=== PATIENT | female | born 1990 | race Caucasian/White ===

== ENCOUNTER 2023-06-20 14:09 | Outpatient (REF) | payer OTHER, SELFPAY ==
[2023-06-20 14:32] LABS: MANUAL DIFF FLAG NO
[2023-06-20 14:59] LABS: Basophils Percent Auto 0.1 % (0-2); Eosinophils Absolute Auto 0.3 X10*3/uL (0.0-0.4); Eosinophils Percent Auto 1.9 % (0-4); Hematocrit 37.3 % (37.0-47.0); Hemoglobin 12.3 g/dl (12.0-16.0); Imm Gran Abs Auto 0.05 X10*3/uL (0.00-0.03); Imm Gran Pct Auto 0.4 % (0.0-0.4); Lymphocytes Absolute Auto 4.3 X10*3/uL (1.2-4.9); Lymphocytes Percent Auto 31.5 % (20-40); Mean Corpuscular Hemoglobin 27.8 pg (27.0-33.0); Mean Corpuscular Volume 84.4 fL (80.0-98.0); Monocytes Absolute Auto 0.7 X10*3/uL (0.1-1.2); Monocytes Percent Auto 4.9 % (2-11); Neutrophils Absolute Auto 8.3 x10*3/uL (2.0-8.3); Neutrophils Percent Auto 61.2 % (45-73); Platelet Count 377 X10*3/uL (160-400); Red Blood Count 4.42 X10*6/uL (4.20-5.50); Red Cell Distribution Width 13.2 % (11.0-16.0); White Blood Count 13.5 X10*3/uL (4.8-10.8)
[2023-06-20 16:16] LABS: C Reactive Protein 1.02 mg/dL (< or = 0.50)
[2023-06-20 16:17] LABS: Erythrocyte Sedimentation Rate 26 MM/HR (0-20)
== END 2023-06-20 14:10 | disposition home or self-care (01) ==
LOC: HO.LAB 14:09
PROVIDERS: PCP Internal Medicine; Visit Provider Registered Nurse
DX: G44.83 Primary cough headache (principal)
CPT/HCPCS: 36415; 85025; 85652; 86140

== ENCOUNTER 2023-09-07 08:44 | Day surgery (SDC) | payer OTHER, MEDICAID, SELFPAY ==
--- NOTE | ~2023-09-07 | FL_ITS ---
FLUOROSCOPIC GUIDED LUMBAR PUNCTURE INDICATION: Pseudotumor cerebri Risks and benefits and possible complications were discussed with the patient and the consent form was signed. Patient was placed prone on the fluoroscopy table. The back was prepped and draped in routine sterile fashion. Betadine was used as a skin antiseptic. Utilizing fluoroscopic guidance, the L2-3 interlaminar space was accessed with a 5 in 22 gauge quinkie spinal needle and clear CSF fluid obtained. Opening pressure was 28 cm H20 the left lateral decubitus position. 10 cc of fluid was removed and sent for analysis. Closing pressure was 15 cm H2O. The needle was removed without immediate complications. Total fluoroscopy time: 0.7 min FL/FL guided lumbar puncture LP IMPRESSION: Successful fluoroscopic lumbar puncture. Elevated opening pressure. This procedure was performed by Alfred Cornejo PA-C and supervised by Dr. Rankin.
[2023-09-07 09:34] VITALS: BMI 44.3
[2023-09-07 12:00] VITALS: BP 126/77; PULSE 71; RESP 20; TEMP 36.3; O2SAT 97
[2023-09-07] MEDS: Acetaminophen 325 MG TABLET 650 MG PO (12:05)
[2023-09-07] MEDS: Cyclobenzaprine HCl 10 MG TABLET PO (12:14)
[2023-09-07 12:15] VITALS: BP 128/79; PULSE 75; RESP 16; O2SAT 97
[2023-09-07 12:30] VITALS: BP 129/82; PULSE 85; RESP 18; O2SAT 99
[2023-09-07 12:42] VITALS: BP 122/72; PULSE 86; RESP 20; TEMP 36.5; O2SAT 98
[2023-09-07 12:55] LABS: CSF Appearance Clear, Colorless; CSF Tube # 1
[2023-09-07 13:05] LABS: Glucose CSF 58 mg/dL; Total Protein CSF 31.4 mg/dL (15-45)
[2023-09-07 13:41] LABS: Appearance CSF CLEAR; CSF Tube # 4; Color CSF COLORLESS; Lymphocytes CSF 100 %; Red Blood Cell CSF 9 MM*3; White Blood Cell CSF 2 MM*3
== END 2023-09-07 12:46 | disposition home or self-care (01) ==
PROVIDERS: Physician Assistant Surgical; PCP Internal Medicine; Visit Provider Psychiatry & Neurology Neurology
PROC: 009U3ZZ Drainage of Spinal Canal, Percutaneous Approach (ICD-10-PCS; CPT 62270; principal; 2023-09-07 11:00)
DX: G93.2 Benign intracranial hypertension (principal); G43.909 Migraine, unspecified, not intractable, without status migrainosus; F32.A Depression, unspecified; K58.9 Irritable bowel syndrome, unspecified
CPT/HCPCS: 62328; 82945; 84157; 87015; 87070; 87205; 89051

== ENCOUNTER → 2023-09-07 11:00 | Outpatient (BNV) | payer OTHER, MEDICAID, SELFPAY | PROVIDERS: PCP Internal Medicine; Visit Provider Physician Assistant Surgical | DX: G93.2 Benign intracranial hypertension (principal) | CPT/HCPCS: 62328 ==

== ENCOUNTER 2023-09-10 09:15 | Emergency (ER) | payer OTHER, MEDICAID, SELFPAY ==
[2023-09-10 09:37] VITALS: BP 138/42; PULSE 79; RESP 20; TEMP 36.4; O2SAT 98; BMI 43.9
[2023-09-10 10:12] VITALS: BP 123/72; PULSE 73; RESP 16; TEMP 36.7; O2SAT 100
--- NOTE | 2023-09-10 10:12 | ED_ITS ---
HPI - Headache General Chief Complaint: Headache Stated Complaint: nausea headache Time Seen by Provider: 09/10/23 10:08 Source: patient and RN notes reviewed Mode of arrival: ambulatory Limitations: no limitations History of Present Illness HPI Narrative: This is a 13-pafq-bom-female, with a history of migraine headaches, presenting to the ER with complaints of headaches, nausea, dizziness, facial tingling x 3 days. Pt states that she had a lumbar puncture perforrmed by Dr. Pizano on 09/07/2023. She states that the procedure went well. The following day, while she was at lunch she started to develop headaches, nausea, that would only resolve with laying flat. She states that her symptoms are intermittent as they resolve while she is lying flat. She called Dr. Pizaon and was told to report to the ER for further evaluation. No other complaints or concerns at this time. MD elicited complaint: headache and migraine Associated symptoms: none Treatments prior to arrival: none Related Data Home Medications Medication Instructions Recorded Confirmed acetaminophen 500 mg tablet 1,000 mg PO Q6H PRN pain 09/07/23 09/07/23 buspirone 5 mg tablet 5 mg PO BID 09/07/23 09/07/23 smjgokumnd-cmgfiouhisdvu-latalnvj 1 tab PO Q8H PRN Gastric Reflux 09/07/23 09/07/23 50 mg-325 mg-40 mg tablet cyclobenzaprine 10 mg tablet 10 mg PO TID 09/07/23 09/07/23 cyclobenzaprine 5 mg tablet 5 - 10 mg PO QD-TID PRN pain 09/07/23 09/07/23 escitalopram oxalate 20 mg tablet 20 mg PO DAILY 09/07/23 09/07/23 ibuprofen 800 mg tablet 800 mg PO Q8H 09/07/23 09/07/23 pantoprazole 40 mg tablet,delayed 40 mg PO DAILY 09/07/23 09/07/23 release propranolol 10 mg tablet 10 mg PO BID PRN insomnia 09/07/23 09/07/23 simethicone 80 mg chewable tablet 80 mg PO QID PRN gas 09/07/23 09/07/23 spironolactone 100 mg tablet 100 mg PO DAILY 09/07/23 09/07/23 sucralfate 1 gram tablet 1 g PO NEEDED PRN Gastric Reflux 09/07/23 09/07/23 tramadol 50 mg tablet 50 mg PO TID 09/07/23 09/07/23 Previous Rx's Medication Instructions Recorded omjspjvfpr-gmrtzucsarfuw-irfubiaw 2 cap PO Q4-6H PRN pain #14 caps 09/10/23 50 mg-300 mg-40 mg capsule (Fioricet) Allergies Allergy/AdvReac Type Severity Reaction Status Date / Time No Known Allergies Allergy Verified 09/10/23 09:37 Review of Systems 2 Review of Systems: Yes all other systems are reviewed and are negative Constitutional: Constitutional: Reports as per HPI [facility] Past Medical History Medical History (Updated 09/11/23 @ 15:52 by Juan Watts MD) GERD (gastroesophageal reflux disease) Depression Acne Former smoker H/O migraine IBS (irritable bowel syndrome) Surgical History (Updated 09/07/23 @ 09:04 by Yasmine Watson) Hx laparoscopic cholecystectomy History of microdiscectomy Hx of tubal ligation Social History Social History Are you a primary resident caregiver to a significant other at home: Yes (children) Do you presently have visiting nurse or other home services: No Patient Tobacco Use Status: Former Tobacco user Quit Date: 2018 Tobacco use type: Cigarette Physical Exam 2 Vital Signs: Vital Signs: Last Vital Signs Temp 98.6 F 09/10/23 17:27 Pulse 74 09/10/23 17:27 Resp 14 09/10/23 17:27 BP 136/84 09/10/23 17:27 Pulse Ox 99 09/10/23 17:27 O2 Del Method Room Air 09/10/23 17:27 BMI result Body Mass Index 43.9 Const: General: cooperative, comfortable and no acute distress O rientation/consciousness: patient oriented x3 Limitations: no limitations HEENT: Head: Yes normal to inspection, Yes normocephalic and Yes atraumatic Ears: hearing grossly normal bilaterally General nose exam: Normal external nose present Face and sinus: Yes normal facial exam Mouth: Normal oral and palatal mucosa present, oropharynx normal and moist mucous membranes Throat: Yes posterior oropharynx normal Eyes: General: appearance normal, both eyes and all related structures E yelids: Yes eyelids normal Conjunctivae: conjunctivae normal Sclerae: s clerae normal Pupils: Equal, round and reactive pupils present EOM: EOMs intact bilaterally Neck: Neck: Yes normal visual inspection, Yes full ROM and Yes no lymphadenopathy Lymphatic: no lymphadenopathy noted Chest: Chest palpation & inspection: normal inspection of the chest Resp: Effort & Inspection: normal respiratory effort and able to speak in complete sentences Auscultation: clear to auscultation bilaterally, no crackles, no rales, no rhonchi and no wheezes Cardio: Rate: regular rate Rhythm: regular rhythm Heart sounds: S1 normal heart sound present and S2 normal heart sound present GI: Inspection: Yes normal to inspection Skin: General skin exam: no rashes or lesions noted Trauma: no lacerations or abrasions Wounds: no wounds Neuro: General: patient oriented x3 and moves all extremities Cranial nerves: Yes CN's II-XII intact bilaterally, Yes Equal, round and reactive pupils present, Yes Normal facial strength present and Yes Midline tongue present C ognition (Neuro): normal cognition Motor exam (neuro): 5/5 motor strength present throughout Extrem: General: Yes normal to inspection Right upper extremity: normal to inspection Left upper extremity: normal to inspection Right lower extremity: normal to inspection Left lower extremity: normal to inspection NIH Stroke Scale Internal: Initial- Upon Arrival Level of Consciousness: Alert Level of Consciousness Questions: Answers both questions correctly Level of Consciousness Commands: Performs both tasks correctly Best Gaze: Normal Visual: No visual loss Facial Palsy: Normal Motor Arm (Right): No drift Motor Arm (Left): No drift Motor Leg (Right): No drift Motor Leg (Left): No drift Limb Ataxia: Absent Sensory: Normal Best Language: No aphasia Dysarthia: Normal Extinction and Inattention: No abnormality Score: 0 Course Reevaluation(s) Reevaluation #1: Patient re-evaluated, feeling better however was only able to sit up for approximately 5 minutes and she started to feel pressure in her head again. Patient about to receive 2nd L of fluids. Will continue to monitor. Time: 12:43 Reevaluation #2: Patient re-evaluated, IV fluids still running however, about 1/3 of the bag left. patient has been laying down horizontally, will trial patient in an upright position and re-evaluate. She states that she is feeling significantly since her arrival in the emergency room however does reports some pressure in her forehead. She remains hemodynamically stable, afebrile, neurologically intact. Time: 15:05 Reevaluation #3: Patient reassessed after having her sit upright states worsening pain, she reports this as a pressure-like sensation. Pressure resolves with lying down. I discussed this with my attending physician, Dr. Pan, who given we have exhausted all entities including IV fluids, Reglan, Benadryl, Fioricet, and patient has improved however still extremely symptomatic, refusing to sit up for prolonged periods of time as well as walking, patient may need further intervention. Dr. Pan recommends reaching out to anethesiology for epidural blood patch. Time: 15:31 Additional Reevaluation(s): Spoke to Dr. Allen, unable to perform blood patch tonight. Advised to reach out to pain management. I spoke to Dr. Watts, who recommends diet of pepsi/coke and dark chocolate and to remain horizontal, and plenty of rest. Pt is feeling better, but still not back to her baseline. Dr. Watts reports that she can follow up in his office tomorrow if symptoms persist. Relayed information to patient who understands and agrees with plan. Pt stable for discharge. Medications Administered Discontinued Medications Generic Name Dose Route Start Last Admin Trade Name Freq PRN Reason Stop Dose Admin Acetaminophen/Butalbital/Caffeine 2 tab 09/10/23 10:09 09/10/23 10:32 Butalb/Acetamin/Caff 50/325/40 Tablet PO 09/10/23 10:10 2 tab ONCE ONE Administration Diphenhydramine HCl 50 mg 09/10/23 10:09/10/23 10:33 Diphenhydramine Hcl 50 Mg/Ml Vial IVPUSH 09/10/23 10:10 50 mg ONCE ONE Administration Sodium Chloride 1,000 mls @ 2,000 mls/hr 09/10/23 10:09/10/23 11:29 Ns IVCONT 09/10/23 10:38 Infused .Q30M ONE Infusion Metoclopramide HCl 10 mg 09/10/23 10:09/10/23 10:35 Metoclopramide Hcl 10 Mg/2 Ml Vial IVPUSH 09/10/23 10:10 10 mg ONCE ONE Administration Medical Decision Making Medical Decision Making MDM Narrative: This is a 5-hdrw-isc-female, with a history of migraines, presenting to the ER with a complaint of migraines, facial tingling, which occurs with sitting upright. She had a lumbar puncture performed 3 days ago, and symptoms started on Sunday. Symptoms only occur with sitting upright. She has no nuchal rigidity, full range of motion of the neck. Lumbar spine without any evidence of erythema edema. Small puncture wound noted at the lumbar midline spine. No fluctuance or induration. On arrival, vital signs stable. She is neurologically intact. Discussed case with Dr. Pan, who advises to medicating with 2L IV fluids, Reglan 10mg IV, Benadryl 50mg IV, and Fioricet 2 tabs and re-evaluate. Patient is neurologically intact. Will continue to closely monitor. Differential diagnoses include benign intracranial hypertension, migraine headache, ICH - unlikely, electrolyte derangement, vertigo Plan: Labs, medication, re-evaluate Differential Diagnosis Differential Diagnoses: The differential diagnosis associated with the presentation includes See above Admission/Observation Consideration of admission/observation: Escalation of care including admission/observation considered Consult Healthcare Provider Management of the patient was discussed with: Brake Coupler Dinkey Dr. Stefanie Allen Lab Data [facility] Lab Attestation statement: I reviewed the patient's lab results. Slight leukocytosis, stable H&H,CRP slightly elevated, slight elevation in ALT. 09/10/23 10:29 09/10/23 10:29 Labs: Lab Results 09/10/23 Range/Units 10:29 WBC 11.1 H (4.8-10.8) X10*3/uL RBC 4.84 (4.20-5.50) X10*6/uL Hgb 13.8 (12.0-16.0) g/dl Hct 41.3 (37.0-47.0) % MCV 85.3 (80.0-98.0) fL MCH 28.5 (27.0-33.0) pg MCHC 33.4 (31.0-35.0) g/dl RDW 13.4 (11.0-16.0) % Plt Count 422 H (160-400) X10*3/uL MPV 9.3 L (9.4-12.3) fL Immature Gran % (Auto) 0.4 (0.0-0.4) % Neut % (Auto) 73.2 H (45-73) % Lymph % (Auto) 21.7 (20-40) % [place] % (Auto) 3.6 (2-11) % Eos % (Auto) 0.9 (0-4) % Baso % (Auto) 0.2 (0-2) % Lymph # (Auto) 2.4 (1.2-4.9) X10*3/uL [place] # (Auto) 0.4 (0.1-1.2) X10*3/uL Eos # (Auto) 0.1 (0.0-0.4) X10*3/uL Baso # (Auto) 0.0 (0.0-0.2) X10*3/uL Abs Immat Gran (auto) 0.04 H (0.00-0.03) X10*3/uL Absolute Neuts (auto) 8.1 (2.0-8.3) x10*3/uL Absolute Nucleated RBC 0.000 (0.0-0.012) X10*3/uL Nucleated RBC % (auto) 0.0 (0.0-0.2) /100WBC ESR 23 H (0-20) MM/HR Sodium 139 (135-145) mmol/L Potassium 3.9 (3.3-5.1) mmol/L Chloride 103 (96-108) mmol/L Carbon Dioxide 27 (22-29) mmol/L Anion Gap 13 (12-20) BUN 10 (9-16) mg/dL Creatinine 0.69 (0.5-1.4) mg/dL Estim Creat Clear Calc 133.5 Estimated GFR > 60 Random Glucose 106 (60-115) mg/dL Calcium 9.8 (8.4-10.2) mg/dL Total Bilirubin 0.8 (0.0-1.0) mg/dL Direct Bilirubin 0.2 (0.0-0.5) mg/dL AST 18 (5-31) U/L ALT 40 H (0-31) U/L Alkaline Phosphatase 78 (39-117) U/L C-Reactive Protein 1.67 H (< or = 0.50) mg/dL Total Protein 8.0 (6.5-8.0) g/dL Albumin 4.4 (3.5-5.0) g/dL Discharge Plan Discharge Clinical Impression: Post-dural puncture headache, Migraine Patient Disposition: Home, Self-Care Instructions: Lumbar Puncture (ED) Additional Instructions: You were seen in the emergency department due to headaches after having a lumbar puncture. We medicated you with Fioricet, fluids, Benadryl and Reglan. Your symptoms slightly improved. It is very important for you to lay horizontally, and only get up if you need to use the restroom. Eating a diet high in dark chocolate and Coca-Cola is recommended by the stage setting painter apprentice. Continue taking Fioricet every 4-6 hours as needed for pain. The stage setting painter apprentice, Dr. Ritter's office will call you to schedule a blood patch for tomorrow September 11, 2023. If any new or worsening symptoms occur including but not limited to worsening headaches, dizziness, chest pain, shortness of breath, please return for re- evaluation. Prescriptions: New gwsbsvblwy-lrlsmhqxcsrnt-aplz [Fioricet] 50-300-40 mg capsule 2 cap PO Q4-6H PRN (Reason: pain) Qty: 14 0RF Rx Instructions: do not exceed 6 caps per day No Action cyclobenzaprine 10 mg tablet 10 mg PO TID buspirone 5 mg tablet 5 mg PO BID ibuprofen 800 mg tablet 800 mg PO Q8H sucralfate 1 gram tablet 1 g PO NEEDED PRN (Reason: Gastric Reflux) spironolactone 100 mg tablet 100 mg PO DAILY tramadol 50 mg tablet 50 mg PO TID acetaminophen 500 mg tablet 1,000 mg PO Q6H PRN (Reason: pain) qksdzzegao-utgvkcajxdnpw-kilj 50-325-40 mg tablet 1 tab PO Q8H PRN (Reason: Gastric Reflux) propranolol 10 mg tablet 10 mg PO BID PRN (Reason: insomnia) pantoprazole 40 mg tablet,delayed release (DR/EC) 40 mg PO DAILY simethicone 80 mg tablet,chewable 80 mg PO QID PRN (Reason: gas) escitalopram oxalate 20 mg tablet 20 mg PO DAILY cyclobenzaprine 5 mg tablet 5 - 10 mg PO QD-TID PRN (Reason: pain) Referrals: [facility] [Provider Group] Stand Alone Forms: Work/School Release Interventions: ED Discharge Assessment Last Done: 09/10/23 17:27 Discharge Date/Time: 09/10/23 17:28
[2023-09-10] MEDS: Butalb/Acetamin/Caff 50/325/40 TABLET 2 TAB PO (10:32)
[2023-09-10] MEDS: diphenhydrAMINE HCL 50 MG/ML VIAL IVPUSH (10:33)
[2023-09-10] MEDS: Metoclopramide HCl 10 MG/2 ML VIAL IVPUSH (10:35)
[2023-09-10 10:36] LABS: MANUAL DIFF FLAG NO
[2023-09-10 10:41] LABS: Basophils Percent Auto 0.2 % (0-2); Eosinophils Absolute Auto 0.1 X10*3/uL (0.0-0.4); Eosinophils Percent Auto 0.9 % (0-4); Hematocrit 41.3 % (37.0-47.0); Hemoglobin 13.8 g/dl (12.0-16.0); Imm Gran Abs Auto 0.04 X10*3/uL (0.00-0.03); Imm Gran Pct Auto 0.4 % (0.0-0.4); Lymphocytes Absolute Auto 2.4 X10*3/uL (1.2-4.9); Lymphocytes Percent Auto 21.7 % (20-40); Mean Corpuscular HGB Conc 33.4 g/dl (31.0-35.0); Mean Corpuscular Hemoglobin 28.5 pg (27.0-33.0); Mean Corpuscular Volume 85.3 fL (80.0-98.0); Mean Platelet Volume 9.3 fL (9.4-12.3); Monocytes Absolute Auto 0.4 X10*3/uL (0.1-1.2); Monocytes Percent Auto 3.6 % (2-11); Neutrophils Absolute Auto 8.1 x10*3/uL (2.0-8.3); Neutrophils Percent Auto 73.2 % (45-73); Platelet Count 422 X10*3/uL (160-400); Red Blood Count 4.84 X10*6/uL (4.20-5.50); Red Cell Distribution Width 13.4 % (11.0-16.0); White Blood Count 11.1 X10*3/uL (4.8-10.8)
[2023-09-10] MEDS: 0.9 % Sodium Chloride 1,000 ML 2000 ML IVCONT (10:41)
[2023-09-10 10:56] LABS: Alanine Aminotransferase 40 U/L (0-31); Albumin Level 4.4 g/dL (3.5-5.0); Alkaline Phosphatase 78 U/L (39-117); Anion Gap 13 (12-20); Aspartate Amino Transferase 18 U/L (5-31); Bilirubin Direct 0.2 mg/dL (0.0-0.5); Bilirubin Total 0.8 mg/dL (0.0-1.0); Blood Urea Nitrogen 10 mg/dL (9-16); C Reactive Protein 1.67 mg/dL (< or = 0.50); Calcium 9.8 mg/dL (8.4-10.2); Carbon Dioxide 27 mmol/L (22-29); Chloride 103 mmol/L (96-108); Creatinine Clr Calc Pharmacy 133.5; Estimated Glomerular Filt Rate > 60; Glucose Random 106 mg/dL (60-115); Potassium 3.9 mmol/L (3.3-5.1); Sodium 139 mmol/L (135-145)
[2023-09-10 11:20] LABS: Erythrocyte Sedimentation Rate 23 MM/HR (0-20)
[2023-09-10 14:00] VITALS: BP 113/51; PULSE 65; RESP 12; TEMP 36.9; O2SAT 100
--- NOTE | 2023-09-10 14:20 | PC.NURSE ---
20G IV placed to RAC. pt medicated and fluids infusing per mar. effectiveness pending. pt sts no pain to head when lying supine but worsens when sitting up. pt resting quietly on stretcher in no apparent distress with uncle at bedside. rr even/unlabored. call olmos within reach. plan of care ongoing.
[2023-09-10 17:27] VITALS: BP 136/84; PULSE 74; RESP 14; TEMP 37; O2SAT 99
== END 2023-09-10 17:28 | disposition home or self-care (01) ==
PROVIDERS: Physician Assistant Medical; Emergency Provider Emergency Medicine; PCP Internal Medicine
DX: G97.1 Other reaction to spinal and lumbar puncture (principal); G43.919 Migraine, unspecified, intractable, without status migrainosus; Y84.4 Aspiration of fluid as the cause of abnormal reaction of the patient, or of later complication, without mention of misadventure at the time of the procedure; Y92.9 Unspecified place or not applicable
CPT/HCPCS: 36415; 80048; 80076; 85025; 85652; 86140; 96361; 96374; 96375; 99284; J1200; J2765

== ENCOUNTER 2023-09-11 09:14 | Day surgery (SDC) | payer OTHER, MEDICAID, SELFPAY ==
[2023-09-11] VITALS (11 sets, daily range): BP systolic 108–170; BP diastolic 62–81; PULSE 68–84; RESP 15–20; TEMP 36.3–36.8; O2SAT 96–99; BMI 43.9
--- NOTE | ~2023-09-11 | FL_ITS ---
EXAMINATION: XR FLUOROSCOPY WITH IMAGES CLINICAL INFORMATION: Blood patch. COMPARISON: Fluoroscopic guidance for lumbar puncture dated 09/07/2023. TECHNIQUE: Fluoroscopy Supervised By: Dr. Juan Watts. Fluoroscopy Time: 0.2. Cumulative Dose: 19.0 mGy. DAP: 3.51 Gycm2. Images: 2. FINDINGS: The submitted images show a spinal needle, with tip positioned overlapping the posterior elements at the L3-L4 level. FL/FL guidance in OR IMPRESSION: Intraoperative fluoroscopic guidance is provided during blood patch procedure. Please see the patient's Operative Report for full procedural details.
--- NOTE | 2023-09-11 09:23 | ED_ITS ---
HPI - General Adult General Chief complaint: Headache Stated complaint: Blood Patch per Loan Time Seen by Provider: 09/11/23 09:15 Source: patient Mode of arrival: ambulatory Limitations: no limitations History of Present Illness HPI narrative: 33-year-old female history of obesity, migraine , depression, GERD presents with complaints of diffuse headache she states this headache has been ongoing since 09/08/2023 after a lumbar puncture that was done by on 09/07/2023. Reports procedure went well however pain started the day after. Also reporting a/c nausea. Headache better when laying flat. Has been eating chocolate and cocacola as recommended by pain Dr. Watts. She tried calling the office to schedule an outpatient blood patch however they told her they had no referral and could not accommodate her. She called the ED stating she was scare and in pain so she returned for evaluation. Related Data Home Medications Medication Instructions Recorded Confirmed acetaminophen 500 mg tablet 1,000 mg PO Q6H PRN pain 09/07/23 09/07/23 buspirone 5 mg tablet 5 mg PO BID 09/07/23 09/07/23 stiwrvqbtn-ttoxxfgcayvvx-lxhhkjbr 1 tab PO Q8H PRN Gastric Reflux 09/07/23 09/07/23 50 mg-325 mg-40 mg tablet cyclobenzaprine 10 mg tablet 10 mg PO TID 09/07/23 09/07/23 cyclobenzaprine 5 mg tablet 5 - 10 mg PO QD-TID PRN pain 09/07/23 09/07/23 escitalopram oxalate 20 mg tablet 20 mg PO DAILY 09/07/23 09/07/23 ibuprofen 800 mg tablet 800 mg PO Q8H 09/07/23 09/07/23 pantoprazole 40 mg tablet,delayed 40 mg PO DAILY 09/07/23 09/07/23 release propranolol 10 mg tablet 10 mg PO BID PRN insomnia 09/07/23 09/07/23 simethicone 80 mg chewable tablet 80 mg PO QID PRN gas 09/07/23 09/07/23 spironolactone 100 mg tablet 100 mg PO DAILY 09/07/23 09/07/23 sucralfate 1 gram tablet 1 g PO NEEDED PRN Gastric Reflux 09/07/23 09/07/23 tramadol 50 mg tablet 50 mg PO TID 09/07/23 09/07/23 Previous Rx's Medication Instructions Recorded bdbrxynncj-afghbpngtdetu-ipnwcyrf 2 cap PO Q4-6H PRN pain #14 caps 09/10/23 50 mg-300 mg-40 mg capsule (Fioricet) Allergies Allergy/AdvReac Type Severity Reaction Status Date / Time No Known Allergies Allergy Verified 09/10/23 09:37 Review of Systems Review of Systems: Yes all other systems are reviewed and are negative COUNTS INCLUDE 234 BEDS AT THE [facility] Past Medical History Attestation statement: The following information was validated with the patient. Source: old records reviewed and nursing notes reviewed Medical History (Updated 09/11/23 @ 09:30 by TIARRA Santos) GERD (gastroesophageal reflux disease) Depression Acne Former smoker H/O migraine IBS (irritable bowel syndrome) Surgical History (Updated 09/07/23 @ 09:04 by Yasmine Watson) Hx laparoscopic cholecystectomy History of microdiscectomy Hx of tubal ligation Social History Social History Smoked in Last 30 Days: No Use of substances other than those prescribed or required for medical reasons: No Advance Directives: No Advance Directives Information Provided: No Patient : No Physical Exam ED Vital Signs: Vital Signs - 24 hr 09/11/23 09:23 09/11/23 09:25 09/11/23 10:17 Temperature 97.6 F Pulse Rate 81 79 Respiratory Rate 16 20 Blood Pressure 133/68 128/75 Pulse Oximetry 99 99 Oxygen Delivery Method Room Air Room Air BMI result Body Mass Index 43.9 Course Reevaluation(s) Reevaluation #1: Patient will be sent to surgery, they will monitor patient in hopes for patient to be discharged from surgery. Patient aware of plan. Time: 10:01 Reevaluation #2: Dr. Watts assessed patient at bedside and patient told him that her pressure was high, 26 when the lumbar puncture was done which is concerning for pseudotumor cerebri therefore he is hesitant to do blood patch at this time as 1 of the potential side effects can be blindness. Will reach out to Dr. Pizano who performed lumbar puncture. Time: 10:21 Reevaluation #3: Dr. Pizano states patient needs a blood patch and her ICP shouldnt matter. Will inform Dr. Watts of this Time: 10:27 Additional Reevaluation(s): will set up OR time for blood patch as patient wants general anesthesia Medications Administered Discontinued Medications Generic Name Dose Route Start Last Admin Trade Name Torres PRN Reason Stop Dose Admin Hydromorphone HCl 1 mg 09/11/23 09:15 09/11/23 10:08 Hydromorphone Hcl 1 Mg/Ml Syringe IVPUSH 09/11/23 09:16 1 mg ONCE ONE Administration Protocol Medical Decision Making Medical Decision Making [facility] Narrative: 922 33-year-old female presents w/ headache s/p LP which started on 09/08/2023 PE patient appears uncomfortable. NIHSS-0 Hx and pe concerning for post-LP headache vs migrane. Unlikely stroke, posterior stroke, ICH. I do not suspect metabolic derangments. Plan- pain control No indication for head CT. There is no focal neuro deficits. Pain likely secondary to post procedural headache. Differential Diagnosis Differential Diagnoses: The differential diagnosis associated with the presentation includes Hx and pe concerning for post-LP headache vs migrane. Unlikely stroke, posterior stroke, ICH. I do not suspect metabolic derangments. Admission/Observation Consideration of admission/observation: Escalation of care including admission/observation considered Consult Healthcare Provider Management of the patient was discussed with: Door Trimmer (Dr. Watts) Lab Data [facility] Lab Attestation statement: I reviewed the patient's lab results. Reviewed labs from yesterday --> no need for repeat labs Critical Care Time Critical Care Time Critical Care Time: Yes Total Critical Care Time: 60 Attestation: I attest to this time spent taking care of the patient, obtaining history, physical, reviewing labs, imaging, speaking to my attending, speaking to specialist. Discharge Plan Discharge Clinical Impression: Post-dural puncture headache Patient Disposition: Still a Patient
[2023-09-11] MEDS: HYDROmorphone HCl 1 MG/ML SYRINGE IVPUSH ×2 (10:08→14:16)
--- NOTE | 2023-09-11 10:18 | PC.NURSE ---
Pt seen by anaesthesia, ?plan as pt told blood patch may increase pain d/t inability for CSF to drain. Pt tearful and overwhelmed. Request Dr Pizano input.
--- NOTE | 2023-09-11 13:25 | PC.NURSE ---
Addendum entered by Christiana Huddleston 09/11/23 13:26: in short stay, states to awaitt call to transfer pt Original Note: Report to Rosamaria
[2023-09-11] MEDS: Butalb/Acetamin/Caff 50/325/40 TABLET 1 TAB PO (14:15)
--- NOTE | 2023-09-11 15:43 | P.CNPAIN_ITS ---
Review of Systems Review of Systems: Yes all other systems are reviewed and are negative [facility] Past Medical History Medical History (Updated 09/11/23 @ 15:52 by Juan Watts MD) GERD (gastroesophageal reflux disease) Depression Acne Former smoker H/O migraine IBS (irritable bowel syndrome) Surgical History (Updated 09/07/23 @ 09:04 by Yasmine Watson) Hx laparoscopic cholecystectomy History of microdiscectomy Hx of tubal ligation Social History Social History Smoked in Last 30 Days: No Use of substances other than those prescribed or required for medical reasons: No Advance Directives: No Advance Directives Information Provided: No Patient : No Physical Exam Vital Signs: Vital Signs: Last Vital Signs Temp 97.3 F 09/11/23 14:18 Pulse 75 09/11/23 14:18 Resp 16 09/11/23 14:18 BP 108/69 09/11/23 14:18 Pulse Ox 97 09/11/23 14:18 O2 Del Method Room Air 09/11/23 14:18 BMI result Body Mass Index 43.9 Const: General: cooperative, comfortable and no acute distress Orientation/consciousness: patient oriented x3 Limitations: no limitations HEENT: Head: Yes normal to inspection, Yes normocephalic and Yes atraumatic Ears: hearing grossly normal bilaterally General nose exam: Normal external nose present Face and sinus: Yes normal facial exam Mouth: Normal oral and palatal mucosa present, oropharynx normal and moist mucous membranes Throat: Yes posterior oropharynx normal Eyes: General: appearance normal, both eyes and all related structures Eyelids: Yes eyelids normal Conjunctivae: conjunctivae normal Sclerae: sclerae normal Pupils: Equal, round and reactive pupils present EOM: EOMs intact bilaterally Neck: Neck: Yes normal visual inspection, Yes full ROM and Yes no lymphadenopathy Lymphatic: no lymphadenopathy noted Chest: Chest palpation & inspection: normal inspection of the chest Resp: Effort & Inspection: normal respiratory effort and able to speak in complete sentences Auscultation: clear to auscultation bilaterally, no crackles, no rales, no rhonchi and no wheezes Cardio: Rate: regular rate Rhythm: regular rhythm Heart sounds: S1 normal heart sound present and S2 normal heart sound present GI: Inspection: Yes normal to inspection Skin: General skin exam: no rashes or lesions noted Trauma: no lacerations or abrasions Wounds: no wounds Neuro: General: patient oriented x3 and moves all extremities Cranial nerves: Yes CN's II-XII intact bilaterally, Yes Equal, round and reactive pupils present, Yes Normal facial strength present and Yes Midline tongue present Cognition (Neuro): normal cognition Motor exam (neuro): 5/5 motor strength present throughout Extrem: General: Yes normal to inspection Right upper extremity: normal to inspection Left upper extremity: normal to inspection Right lower extremity: normal to inspection Left lower extremity: normal to inspection Assessment and Plan (1) Post-dural puncture headache: Status: Acute (2) Migraine: Status: Acute (3) Benign intracranial hypertension: Status: Acute Plan Emergency department personnel contacted neurologist office and neurologist office approved epidural blood patch. The questions were made about patient is ability to withstand her headaches versus migraines. The patient will be brought to the operating room for the epidural blood patch. Risks and benefits were thoroughly explained to the patient. Total time managing care of this patient today: 25 minutes.
--- NOTE | 2023-09-11 15:54 | P.HPSUR_ITS ---
Pre-Procedural Eval Section A - 24 Hr Update-Section A only Date of Service: 09/11/23 The patient is an INPATIENT: No Changes since office visit: Yes Patient answered all questions The patient has been examined within 24 hours of the surgical procedure. The History & Physical has been completed within 30 days and I have reviewed it.: No Section B - Complete if H&P > 30 days Chief Complaint: Blood Patch per Loan Details of Present Illness: Post dural puncture headache, benign intracranial hypertension Relevant Family History (Specify if Yes): No Relevant Social History: None Present Medications: see Short Stay Collaborative assessment Medical History: No relevant PMH History of Previous Operations: No relevant previous surgery Allergies: Allergies Allergy/AdvReac Type Severity Reaction Status Date / Time No Known Allergies Allergy Verified 09/10/23 09:37 Review of Systems Sugical H&P ROS: Negative: Cardiovascular, Respiratory, Neurological, Psychiat marlo, Hem-Onc, Allergic/Immunologic, Gastrointestinal, Genitourinary, Musculoskeletal, Integumentary, Endocrine and Eyes/Ears/Nose/Throat and Yes, Specify: Constitution (Obesity) Exam Surgical H&P Exam: Normal: HEENT, Normal: Heart, Normal: Lungs, Normal: Extremities, Normal: Abdomen, Normal: Skin and Normal: Neurological Plan I have reviewed the history and physical and performed a pertinent physical examination on my patient. No changes have occurred unless specified. Time Spent With Patient Time: Total time managing care of this patient today ____ minutes.
--- NOTE | 2023-09-11 17:35 | PM.OP ---
Brief Operative Note Date of Service: 09/11/23 Pre-op diagnosis: Post dural puncture headache Post-op diagnosis: same Procedure: Epidural blood patch Surgeon: Juan Watts MD Was an Traffic Routing Engineer used for this Procedure?: No Estimated blood loss (mL): 4 Condition: stable Disposition: PACU
--- NOTE | 2023-09-11 17:36 | W.PM.OPN ---
Operative Note Operative Note Date of Service: 09/11/23 Narrative: Epidural blood patch. Informed consent was thoroughly explained to the patient: Risks of bleeding, infection, peripheral nerve damage, spinal cord damage, epidural hematoma and or abscess- were explained to the patient. Alternatives were explained to the patient as bedrest, caffeinated beverages , Fioricet. Patient agreed to go for the procedure. Before the procedure anesthesiologist of the patient Dr. Gomes started peripheral IV on the patient's cephalic vein tributary. The patient was brought to the operating room and was positioned prone on the operating table. The patient received 2 g of cefazolin intravenously 20 minutes before the injection of the autologous blood into the epidural space. The lower back was prepped with ChloraPrep and draped with sterile utility towels. C-arm was brought over the operating field and sq picture of the L5 and L4 vertebra were demonstrated on the screen. Right upper lamina of the L4 vertebra close to the spinous process was chosen as the initial target of needle insertion. Projection of the point of interest to the skin was infiltrated with lidocaine 2%. After that 20 gauge 10 cm Touhy needle was inserted through the skin and advanced to the epidural space on anterior posterior and mostly lateral views. Loss of resistance to air technique was used to locate the epidural space. When epidural space was located injection of the contrast was performed demonstrating epidurogram. Initially Dr. Gomes was able to obtain 4 cc of the blood which I injected into the epidural needle immediately, however after that he had difficulty with drawing blood from the vein. By the time he obtained another 4 cc of the blood the epidural needle got clotted and I had to withdraw the needle out. Sterile Band-Aid was applied. Patient was taking out to PACU where she received intravenous hydration. She was offered to stay under observation in the hospital under care of hospitalist, receive intravenous hydration, continuous bedrest, caffeinated beverages, Fioricet. However patient adamantly refused to stay in the hospital - she wanted to go home. She was discharged.
== END 2023-09-11 18:56 | disposition home or self-care (01) ==
LOC: HO.ED 09:37 → HO.SSS 09:40
PROVIDERS: Emergency Provider Emergency Medicine; PCP Internal Medicine; Visit Provider Anesthesiology
PROC: 3E0R3GC Introduction of Other Therapeutic Substance into Spinal Canal, Percutaneous Approach (ICD-10-PCS; CPT 62273; principal; 2023-09-11 19:40)
DX: G97.1 Other reaction to spinal and lumbar puncture (principal); G43.909 Migraine, unspecified, not intractable, without status migrainosus
CPT/HCPCS: 62273; 96374; 96376; 99284; 99285; J0690; J1170; Q9967

== ENCOUNTER → 2023-09-11 09:36 | Outpatient (BNV) | payer OTHER, MEDICAID, SELFPAY | PROVIDERS: Emergency Provider Emergency Medicine; PCP Internal Medicine; Visit Provider Anesthesiology | DX: G97.1 Other reaction to spinal and lumbar puncture (principal); G43.909 Migraine, unspecified, not intractable, without status migrainosus; G93.2 Benign intracranial hypertension | CPT/HCPCS: 62273; 77003; 99284 ==

== ENCOUNTER 2023-09-21 06:43 | Emergency (ER) | payer OTHER, MEDICAID, SELFPAY ==
[2023-09-21 06:51] VITALS: BP 154/82; PULSE 112; RESP 19; TEMP 36.7; O2SAT 96; BMI 41.7
[2023-09-21 08:00] LABS: IDNOW Serial# 08D9AD1C; Strep A Nucleic Acid Positive (Negative)
--- NOTE | 2023-09-21 08:13 | ED.GENADULT ---
HPI - General Adult General Chief complaint: Upper Respiratory Symptoms Stated complaint: unable to swallow Time Seen by Provider: 09/21/23 08:13 Source: patient Mode of arrival: ambulatory History of Present Illness HPI narrative: 33-year-old female with 3 days of difficulty swallowing and sore throat and related ear pain unsure about fevers or chills. Related Data Home Medications Medication Instructions Recorded Confirmed acetaminophen 500 mg tablet 1,000 mg PO Q6H PRN pain 09/07/23 09/07/23 buspirone 5 mg tablet 5 mg PO BID 09/07/23 09/07/23 orzrwksddg-qwyannaokipzz-aifkhwqu 1 tab PO Q8H PRN Gastric Reflux 09/07/23 09/07/23 50 mg-325 mg-40 mg tablet cyclobenzaprine 10 mg tablet 10 mg PO TID 09/07/23 09/07/23 cyclobenzaprine 5 mg tablet 5 - 10 mg PO QD-TID PRN pain 09/07/23 09/07/23 escitalopram oxalate 20 mg tablet 20 mg PO DAILY 09/07/23 09/07/23 ibuprofen 800 mg tablet 800 mg PO Q8H 09/07/23 09/07/23 pantoprazole 40 mg tablet,delayed 40 mg PO DAILY 09/07/23 09/07/23 release propranolol 10 mg tablet 10 mg PO BID PRN insomnia 09/07/23 09/07/23 simethicone 80 mg chewable tablet 80 mg PO QID PRN gas 09/07/23 09/07/23 spironolactone 100 mg tablet 100 mg PO DAILY 09/07/23 09/07/23 sucralfate 1 gram tablet 1 g PO NEEDED PRN Gastric Reflux 09/07/23 09/07/23 tramadol 50 mg tablet 50 mg PO TID 09/07/23 09/07/23 Previous Rx's Medication Instructions Recorded fisfdpnvkx-cwrguuwhrtfnz-bypdlaiy 2 cap PO Q4-6H PRN pain #14 caps 09/10/23 50 mg-300 mg-40 mg capsule (Fioricet) amoxicillin 875 mg-potassium 1 tab PO BID 10 days #20 tabs 09/21/23 clavulanate 125 mg tablet Allergies Allergy/AdvReac Type Severity Reaction Status Date / Time No Known Allergies Allergy Verified 09/10/23 09:37 Review of Systems Review of Systems: Pertinent positives and negatives as stated in HPI [facility] Past Medical History Source: nursing notes reviewed Medical History GERD (gastroesophageal reflux disease) Depression Acne Former smoker H/O migraine IBS (irritable bowel syndrome) Surgical History Hx laparoscopic cholecystectomy History of microdiscectomy Hx of tubal ligation Social History Social History 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 GENERAL: Well developed, well nourished, in no acute distress. HEAD: Normocephalic/atraumatic EYES: PERRLA, EOMI EARS: Ext canals without abnormality, TMs non-bulging and non-erythematous NOSE: Nares patent bilateral OROPHARYNX: no oral lesions noted, posterior pharynx clear and erythematous with noted tonsillar enlargement/erythema/exudates, no trismus or drooling NECK: Supple, no adenopathy LUNGS: Normal breath sounds. No adventitious sounds or accessory muscle use. SpO2<96> CARDIOVASCULAR: Regular rate and rhythm without noted murmurs ABDOMEN: Soft, non-tender, non-distended with bowel sounds. MUSCULOSKELETAL: No tenderness, deformities, or effusions noted on gross inspection. EXTREMITIES: No cyanosis, clubbing or edema. SKIN: Inspection of the skin reveals no rashes NEUROLOGIC: Alert and oriented x 4. Strength and sensation to light touch were grossly intact x 4. Medical Decision Making Medical Decision Making MDM Narrative: 33-year-old female with history and clinical presentation, DDX: Strep pharyngitis, viral illness I reviewed investigations in viral testing is negative but rapid strep is positive. Patient received Cepacol/analgesics and 1st dose of antibiotics here in the emergency room and then discharged. All results and findings discussed with her at bedside. Differential Diagnosis Differential Diagnoses: The differential diagnosis associated with the presentation includes Please see the discussion above Admission/Observation Consideration of admission/observation: Escalation of care including admission/observation considered Please see the discussion above Lab Data MDM Lab Attestation statement: I reviewed the patient's lab results. Please see the discussion above Labs: Lab Results 09/21/23 Range/Units 07:26 Influenza Type A (PCR) NEGATIVE (Negative) Influenza Type B (PCR) NEGATIVE (Negative) RSV RNA Qual (PCR) NEGATIVE (Negative) SARS-CoV-2 RNA (RT-PCR) NEGATIVE (Negative) S. pyogenes GrpA VIRAL Positive A (Negative) External Record Review External record reviewed: Outpatient record and Prior outpatient labs Critical Care Time Critical Care Time Critical Care Time: Yes Total Critical Care Time: 30 Attestation: I personally attest to this time spent taking care of the patient. Discharge Plan Discharge Clinical Impression: Acute streptococcal pharyngitis Instructions: Strep Throat (ED) Additional Instructions: 1. Recommend hxez-uzz-dkiusmx Tylenol/ibuprofen as needed for pain control and temperatures greater than 100.4. Also recommend hewa-fik-qatonfo Cepacol for throat pain and I would recommend that you do saline gargles with warm tap water and table salt. 2. Complete the entire course of antibiotics as prescribed. Return to the ER for any worsening symptoms. Prescriptions: New amoxicillin-pot clavulanate 875-125 mg tablet 1 tab PO BID 10 Days Qty: 20 0RF No Action rjkgvglawz-xgvwysqhahfye-sesn [Fioricet] 50-300-40 mg capsule 2 cap PO Q4-6H PRN (Reason: pain) Qty: 14 0RF Rx Instructions: do not exceed 6 caps per day cyclobenzaprine 10 mg tablet 10 mg PO TID buspirone 5 mg tablet 5 mg PO BID ibuprofen 800 mg tablet 800 mg PO Q8H sucralfate 1 gram tablet 1 g PO NEEDED PRN (Reason: Gastric Reflux) spironolactone 100 mg tablet 100 mg PO DAILY tramadol 50 mg tablet 50 mg PO TID acetaminophen 500 mg tablet 1,000 mg PO Q6H PRN (Reason: pain) zyxwtcoxdc-rkhkxpcrqykjh-kjgd 50-325-40 mg tablet 1 tab PO Q8H PRN (Reason: Gastric Reflux) propranolol 10 mg tablet 10 mg PO BID PRN (Reason: insomnia) pantoprazole 40 mg tablet,delayed release (DR/EC) 40 mg PO DAILY simethicone 80 mg tablet,chewable 80 mg PO QID PRN (Reason: gas) escitalopram oxalate 20 mg tablet 20 mg PO DAILY cyclobenzaprine 5 mg tablet 5 - 10 mg PO QD-TID PRN (Reason: pain)
[2023-09-21 08:17] LABS: Influenza A PCR NEGATIVE (Negative); Influenza B PCR NEGATIVE (Negative); Resp Syncy Virus RNA Qual PCR NEGATIVE (Negative); SARS COV2 PCR INHOUSE NEGATIVE (Negative)
[2023-09-21 08:43] VITALS: BP 139/82; PULSE 98; RESP 16; O2SAT 97
[2023-09-21] MEDS: Ibuprofen 400 MG TABLET PO (09:22)
[2023-09-21] MEDS: Amoxicillin/Potassium Clav 875 MG TABLET PO (09:22)
[2023-09-21] MEDS: Acetaminophen 325 MG TABLET 975 MG PO (09:22)
[2023-09-21] MEDS: Throat Lozenge, Medicated LOZENGE 1 LOZENGE MUCOUS MEM (09:23)
[2023-09-21 09:57] VITALS: BP 130/65; PULSE 85; RESP 20; TEMP 37.1; O2SAT 98
== END 2023-09-21 09:58 | disposition home or self-care (01) ==
PROVIDERS: Emergency Provider Student in an Organized Health Care Education/Training Program
DX: J02.0 Streptococcal pharyngitis (principal); R13.10 Dysphagia, unspecified; J02.9 Acute pharyngitis, unspecified; H92.09 Otalgia, unspecified ear; Z03.818 Encounter for observation for suspected exposure to other biological agents ruled out
CPT/HCPCS: 0241U; 87651; 99283

== ENCOUNTER 2025-01-12 15:41 | Outpatient (AMB) | payer OTHER, MEDICAID, SELFPAY ==
--- NOTE | 2025-01-12 16:16 | MHC.OFFVIS ---
Vital Signs 01/12/25 16:20 Height 5 ft 2 in Intake Visit Reasons: llH Allergies No Known Allergies Allergy (Verified 01/12/25 16:20) HPI Comments Details: 34-year-old woman with obesity, depression, IBS, GERD, migraines, and IIH. She had LP on 09/07/2023 which revealed OP of 28 and required blood patch. Acetazolamide caused pins and needles in her hands and feet, which could be painful at times and she was switched to topiramate.? She was doing okay. She was taking topiramate 25mg in the morning and was often forgetting to take night time dose. She had few migraines usually around period. Pain was usually left sided, with pain behind eye, burning type with photophobia, sonophobia, and nausea. She would take Aleve as needed which helped some if taken early enough. She rarely used butalbital. Sleep was not so good. 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) Do you presently have visiting nurse or other home services: No Patient Tobacco Use Status: Former Tobacco user Tobacco use type: Cigarette Review of Systems Const Denies chills, Denies daytime sleepiness, Denies difficulty sleeping, Denies fatigue, Denies fever(s), Denies frequent falls, Reports headache(s), Denies increased appetite, Denies poor appetite, Denies snoring, Denies weakness, Denies weight gain and Denies weight loss Eyes Denies loss of vision ENT Denies vertigo, Denies dizziness and Reports headache(s) Card Denies chest pain at rest, Denies chest pain with activity, Denies syncope, Denies leg edema and Denies palpitations Resp Denies snoring GI Denies constipation, Denies heartburn, Denies diarrhea and Denies nausea Denies urinary frequency, Denies urinary incontinence and Denies urinary urgency Musc Denies abnormal gait, Denies numbness and Denies tingling Skin/Breast Denies dry skin and Denies rash Neuro Denies abnormal gait, Denies vertigo, Denies dizziness, Denies syncope, Denies frequent falls, Reports headache(s), Denies lack of coordination, Denies loss of vision, Denies memory loss, Denies numbness, Denies restless legs, Denies seizure-like activity, Denies tingling, Denies paresthesias, Denies tremor(s) and Denies weakness Psych Denies anxiety, Denies depression, Denies auditory hallucinations, Denies memory loss, Denies visual hallucinations and Denies suicidal ideation Endo Denies fatigue and Denies palpitations Physical Exam Const Other: General Appearance:? normal, in no acute distress. Skin:? no rashes, no significant birthmarks. Heart:? S1, S2 normal, no murmurs. Lungs:? clear anteriorly and posteriorly. Extremities:? no edema. Psych:? alert, oriented, cognitive function intact, cooperative with exam. Neuro Other: Mental Status:?Normal attention, orientation, memory and affect.? Cranial Nerves:?Pupils are equal, round and reactive to light. External occular muscles are intact. Visual lo are full. Face is symmetrical. Facial sensations are normal. Tongue is midline. Palate elevates symmetrically. Shoulder shrugging is normal. Hearing to bedside conversation is normal. Motor Examination:?Normal muscle tone, bulk and strength,?Deep tendon reflexes are 2+,?Plantars are flexor.? Sensory Exam:?....? Coordination:?No ataxia,?no titubation.? Gait Exam: Within normal limits. Cerebellar Signs:?Ziaoij-hs-gkbd and yjhm-ax-ypri is normal.? Extrapyramidal System:?No tremor, rigidity with normal facial expressions.? Pronator Drift:?Not present.? Involuntary Movements:?No tremors seen.? Speech:?Normal.? Results Reviewed Results Reviewed: EEG at off in May 2021: [facility]NL Labs at [facility] [place] 05/2023: Ok MRI Brain W+W/O at [facility] 05/2023: normal LP at [facility] [place] 09/07/2023: OP 28cm H2O Assessment & Plan Assessment & Plan (1) Benign intracranial hypertension: Code(s): G93.2 - Benign intracranial hypertension Category: Medical Plan: Continue topiramate 25mg 1 tablet twice a day. May take 2 tablets in morning instead. (2) Migraine without aura: Code(s): G43.009 - Migraine without aura, not intractable, without status migrainosus Category: Medical Qualifiers: Status migrainosus presence: without status migrainosus Intractability: not intractable Qualified Code(s): G43.009 - Migraine without aura, not intractable, without status migrainosus Plan: Continue vzxfiyijcy-LUBS-vtabocbg 50-325-40mg 1-2 tablet as needed for headache once a day #12 for 30 days Medications: Discontinued dwddyjfdyu-paeylcgstoudr-gdwi 50-300-40 mg (Fioricet) do not exceed 6 caps per day Discontinued Reason: Order 2 caps PO Q4-6H PRN 14 caps 0RF pain amoxicillin-pot clavulanate 875-125 mg Discontinued Reason: Order 1 tab PO BID 20 tabs 0RF 10 days Coding Level of Care Code Est Pt Level 4 (58551) Diagnoses Benign intracranial hypertension G93.2 Migraine without aura and without status migrainosus, not intractable G43.009 Status migrainosus presence: without status migrainosus Intractability: not intractable
== END 2025-01-12 16:34 | disposition home or self-care (01) ==
LOC: HO.HSM 15:42
PROVIDERS: Visit Provider Registered Nurse
DX: G93.2 Benign intracranial hypertension (principal); G43.009 Migraine without aura, not intractable, without status migrainosus
CPT/HCPCS: 99214